=== PATIENT | male | born 1970 | race African-American/Black ===

== ENCOUNTER 2019-06-05 23:22 | Inpatient (IN) ==
[2019-06-05 23:50] LABS: Hematocrit 40.6 % (42.0-52.0); Hemoglobin 13.8 gm/dL (13.5-18.0); Mean Cell Volume 95.3 fl (78-100); Mean Corpuscular Hemoglobin 32.4 pg (27-31); Mean Platelet Volume 8.9 fl (8-11.3); Neutrophil # 6.9 K/mm3 (1.3-6.0); Neutrophil % 71.7 % (42-75.0); Platelet Count 252 K/mm3 (150-450); Red Blood Count 4.26 M/mm3 (4.7-6.0); Red Cell Distribution Width 15.1 % (11.5-14.0); White Blood Count 9.7 K/mm3 (4.0-10.5)
[2019-06-06] MEDS ORDERED: ASPIRIN 81 MG TAB.CHEW PO ONE (00:11)
[2019-06-06 00:16] LABS: Albumin * 2.6 gm/dl (3.4-5.0); Anion Gap 13.3 mmol/L (6.8-13.8); BUN/Creatinine Ratio 22.6 (9.0-21.6); Bilirubin, Total 1.8 mg/dL (0.0-1.1); Ca. Corrected For Albumin 8.7 mg/dL (8.4-10.2); Calcium * 7.9 mg/dL (7.9-10.9); Carbon Dioxide 23.6 mmol/L (24-32.6); Potassium 3.9 mmol/L (3.4-4.6); Total Protein 6.1 gm/dL (6.2-8.2)
[2019-06-06] MEDS ORDERED: FUROSEMIDE 10 MG/ML VIAL IV ONE (00:16)
[2019-06-06 00:18] LABS: Troponin I 0.07 ng/mL (0.00-0.10)
--- NOTE | 2019-06-06 00:19 | ERNOTE ---
Chest Pain/Cardiac HPI Date of Service: 06/05/19 Chief Complaint: Chest Pain Time Seen by Provider: 06/05/19 23:30 Source: patient Exam Limitations: no limitations Immunizations: IMMUNIZATION HX Immunizations Up to Date Yes History of Influenza Vaccine Yes Hx Pneumococcal Vaccination No Allergies/Adverse Reactions: Allergies shrimp Adverse Reaction (Intermediate, Verified 05/22/18 22:55) Swelling of Face Home Medications: HOME MEDICATIONS Aspirin [Aspir-Low] 81 mg PO DAILY 01/12/19 [Last Taken Unknown] Atorvastatin Calcium [Lipitor] 20 mg PO DAILY 01/12/19 [Last Taken Unknown] Enalapril Maleate [Vasotec] 10 mg PO BID 01/12/19 [Last Taken Unknown] Furosemide [Lasix] 80 mg PO BID 01/12/19 [Last Taken Unknown] Metoprolol Tartrate 50 mg PO DAILY 01/12/19 [Last Taken Unknown] Furosemide 20 mg PO BID #60 tab 06/06/19 [Last Taken Unknown] Metoprolol Succinate 50 mg PO DAILY 30 Days #30 tab.er.24h 06/06/19 [Last Taken Unknown] Narrative: Patient is a 48 years old male who presented complaining of exacerbation of his heart failure. Patient reports having a poor ejection fraction and being on Lasix 20 mg twice daily, but he ran out of his medication 2-1/2 weeks ago and did not get a renewal. He also reports to be out of his metoprolol 50 mg daily as well. Patient reports being hospitalized in 2018 at the [facility] and being diagnosed with heart failure, and started on metoprolol, furosemide, and a statin. Patient has not yet to establish care with anyone, and has not been compliant with his follow-up, denies use the ER as his primary care. On arrival he also reports of chest pain radiating to his left shoulder and left arm Timing: constant, getting worse Severity/Quality: moderate Chest Pain Radiation: jaw, arms Activities at Onset: none Modifying Factors - Worsens: Present: other - ambulation get short of breath Nitro Today/Relief: 0.4 mg x 1 Aspirin Treatment Today: 81 mg x 4 Prior Chest Pain/Cardiac Workup: Reports: prior chest pain Prior Treatment: Reports: recently seen Review of Systems - Review of Systems Constitutional: Absent: fever EYE: Absent: eye pain ENT: Absent: ear pain Respiratory: Present: shortness of breath, orthopnea, other - SOB on ambulation Cardiology: Present: chest pain Gastrointestinal/Abdominal: Absent: nausea, vomiting, abdominal pain Genitourinary: Absent: pain Musculoskeletal: Absent: back pain Skin: Absent: rash Neurological: Absent: anxiety All Other Systems: All systems neg except as marked Medical History (Last Reviewed 06/05/19 @ 23:34 by Savanah Kennedy) CHF (congestive heart failure) Cardiomegaly Hyperlipemia Hypertension Surgical History: Surgical History (Last Reviewed 06/05/19 @ 23:34 by Savanah Kennedy) History of cholecystectomy Family History: Family History (Last Reviewed 06/05/19 @ 23:34 by Savanah Kennedy) Father CHF (congestive heart failure) Mother Medical history unknown Sister Hypertension Social History: (Last Updated 06/05/19 @ 23:35 by Savanah Kennedy) Tobacco: Smoking Status: Former smoker Alcohol: alcohol intake: former Substance Use: substance use type: does not use, marijuana Physical Exam - Physical Exam General Appearance: Present: wd/wn, mild distress Head Exam: Present: normal inspection Eye Exam: Normal inspection: bilateral, PERRL: bilateral Ears, Nose, Throat: Present: normal ENT inspection Neck: Present: normal inspection Respiratory: Present: no respiratory distress, normal breath sounds Cardiovascular/Chest: Present: regular rate, rhythm, tachycardia Gastrointestinal/Abdominal: Present: normal bowel sounds Back Exam: Present: normal inspection Extremity Exam: Present: normal inspection Neurological Exam: Present: alert, oriented Skin Exam: Present: normal color Lymphatic Exam: Present: no adenopathy Progress - Vital Signs Vital Signs: Vital Signs 06/05/19 23:30 Temperature 36.9 C Pulse Rate 104 H Respiratory Rate 20 Blood Pressure 116/88 O2 Sat by Pulse Oximetry 98 - EKG EKG #1 EKG Comments: HR 102, sinus tachycardia with occasional PVC, inverted T-wave in V4, V5, V6. EKG #2 EKG read: Interp. by ca - HR 74, non specific T wave abnormality, T wave inversion in V4, V5 on previous EKG now resolved - X-Ray X-Ray #1 X-Ray: chest Interpretation: Interp. by me - cardiomegaly - CT/Ultrasound CT/Ultrasound Narrative: CTA chest: Impression 1. No evidence for clinically significant pulmonary emboli. 2. Nonobstructing renal pelvic nephrolithiasis as described. 3. Nonspecific intra-pulmonary airspace disease as described, likely pleural pneumonia versus edema. 4. Alveolitis versus subsegmental atelectasis as described. 5. She will clinical concern for thoracic aortic abnormality exists, recommend CT angiogram of the aorta. CTA abdomen; impression 1. No abdominal aortic dissection, aneurysm, or proximal branch vessel abnormality. 2. Findings suggestive of gastritis and proximal enteritis with small undue luminal hemorrhages versus ingestion of radiodense substances. There are not as well seen on postcontrast images, however. 3. Nonobstructive renal pelvic nephrolithiasis as described. 4. Mesenteric fat stranding that likely reflect an inflammatory process that may manifest as pain. - Progress/Reassessment Chief Complaint: Chest Pain Progress Note-Subjective: 06/06/19 02:00 -patient was ambulated with pulse ox to check is saturation and he desaturated 91% on room air. 02:30 -patient second troponin is 0.062 which is less than the first troponin, patient reports still having some chest pain. I discussed with him the recommendation to keep him in the hospital overnight for diuresis and to reinitiate his medication. Patient asked to think about it for little while. 03:00 -patient refused to be admitted and asked to be discharged home with his furosemide and metoprolol for 30 days and to follow-up post ER visit with Dr. Fang at the beginning of the week. I gave him his daily dose of metoprolol 50 mg, and discussed the need to establish care with a primary care gil. 03:20 -patient was discharged, but he did not have a ride to pick him up so he waited in the ED. 04:20 - Patient started to complain of chest burning, being diaphoretic, I ordered a new EKG, troponin, GI cokctail and restarted an IV 04:30 - contacted Dr Fang who accepted admission with exacerbation of HF 04:46 - patient had an emesis and complains now of pulsation in his epigastric area, he is still diaphoretic. I ordered a CTA aorta. 07:00 -CTA aorta ordered and up being a CTA chest and his CTA abdomen due to problems with sequencing of the contrast through the vessel due to patient being a heart and heart failure. Consequently it took 2 hours for this CTA result to be received, luckily the patient did not have acute finding that needed emergent treatment. 07:05 -patient was finally able to have admission order put in. 06/06/19 05:58 06/06/19 07:13 Plan - Plan Plan: Patient is a 48 years old male with heart failure, and cardiomegaly who is not compliant with his care. He was diagnosed with heart failure in 2018 in [place], and has not found a primary care since. Consequently, he gets his prescription from visit to the ED. He usually run out of medication and waits weeks until he feels not well and then goes to the ED for more evaluation and prescription. Today he presented with chest pain, and shortness of breath on exertion that has been worsening over the last 2 weeks. He stopped taking metoprolol and Lasix 2-1/2 weeks ago. Patient reports to be on metoprolol 50 mg daily and on furosemide 20 mg twice daily. In the ED, on arrival he had an EKG, 4 tablets of 80 mg aspirin, and 0.4 mg of nitroglycerin sublingual which improved his pain (from a 7 to a 1 out of 10), and 60 mg of furosemide IV. His initial troponin was 0.07, his repeat troponin was 0.062, and his BNP was 3374. On ambulation patient desaturated to 91% on room air, I recommended inpatient observation with diuresis and monitoring considering his heart failure and noncompliance. However initially patient refused admission and discharge was prepared, and prescription was given for metoprolol and furosemide for 30 days. Since patient has not taken is metoprolol for 2 weeks and a half, he was also given his daily dose of metoprolol 50 mg. After discharge patient was not able to leave immediately due to lack of transport, also is stated in the ED. Within 1-1/2-hour he started to have diaphoresis and increase in chest pain. A GI cocktail was given which he vomited shortly after. Patient also became hypotensive while standing, which resolved with sitting in the bed. However he continues to complain of severe chest and epigastric pain, due to his diaphoresis and CTA of the aorta was ordered, which was done rapidly. However the report took about 2 hours to be received. Fortunately the patient vitals stabilized and he received a gram of acetaminophen IV which help with the pain. I discussed the case with Dr. Fang, who accepted admission for exacerbation of CHF. Departure Clinical Impression: CHF, acute on chronic - Departure Disposition: Still a patient Condition: Fair
[2019-06-06] MEDS: NITROGLYCERIN 0.4 MG/TAB BTL SL PRN ×3 (00:24→00:37)
[2019-06-06 00:27] LABS: Urine Bilirubin 1 mg/dl (NEGATIVE); Urine Ketone Negative (NEGATIVE); Urine Nitrite Negative (NEGATIVE); Urine Protein 100 mg/dL (NEGATIVE); Urine Specific Gravity 1.025 SP.GR. (1.005-1.030); Urine Urobilinogen Normal (NORMAL)
[2019-06-06] MEDS ORDERED: ACETAMINOPHEN 500 MG TABLET PO ONE (00:42)
[2019-06-06 00:44] LABS: Urine Appearance Slightly Cloudy (CLEAR); Urine Bacteria 2+; Urine Blood 10 /ul (NEGATIVE); Urine Color Dark Yellow; Urine RBC 0-5 /hpf (0-5); Urine WBC TRACE /hpf (0-5)
[2019-06-06 01:11] LABS: Cocaine Ur Negative (NEGATIVE); Urine Barbiturate Negative (NEGATIVE); Urine Benzodiazepines Negative (NEGATIVE); Urine Opiates Negative (NEGATIVE); Urine PCP Negative (NEGATIVE); Urine THC Positive (NEGATIVE)
[2019-06-06] MEDS ORDERED: METOPROLOL TARTRATE 25 MG TABLET PO ONE (03:07)
[2019-06-06] MEDS ORDERED: LIDOCAINE HCL 20 ML UDC PO ONE (04:19)
[2019-06-06] MEDS ORDERED: MAG HYDROX/ALUMINUM HYD/SIMETH 30 ML UDC PO ONE (04:19)
[2019-06-06] MEDS ORDERED: SUCRALFATE 1 G/10 ML UDC PO ONE (04:21)
[2019-06-06] MEDS ORDERED: ONDANSETRON HCL/PF 2 MG/ML VIAL IV ONE (04:33)
[2019-06-06] MEDS ORDERED: ACETAMINOPHEN 1,000 MG/100 ML BTL IV ONE (05:44)
[2019-06-06] MEDS ORDERED: ACETAMINOPHEN 325 MG TABLET PO PRN (12:50)
--- NOTE | 2019-06-06 13:33 | HP ---
Chief Complaint - Chief Complaint Date of Service: 06/06/19 Time of Service: 13:18 Chief Complaint: I have shortness of breath at rest and on exertion for several days History of Present Illness: 48-year-old male with past medical history of congestive heart failure, hypertension, cardiomegaly was evaluated ER due to worsening dyspnea at rest and on exertion and epigastric pain over the past several days. He also complained of chest pain that he radiated to his left upper extremity and jaw, and became diaphoretic while in the ER. CTA of his chest and abdomen were ordered and were negative for any acute findings however the imaging of the abdomen demonstrated possible gastritis and proximal enteritis. Patient was treated with an acids and reported relief of his epigastric discomfort. Possible pneumonia was also mention on imaging of his chest, however labs was negative for leukocytosis and patient denies any recent fever or chills. Pneumonia is unlikely. Patient reports that he was diagnosed with CHF over a year ago and was prescribed diuretics and beta-blockers as well as other medications but stopped taking them over 2 weeks ago. He does this quite often and is very inconsistent with his medications because he is unable to get prescription refills in a timely fashion. When asked why he has been noncompliant with his treatment he reports he does not have a PCP he did not have any plans to establish with 1. Patient has been coming to the ER for management of his chronic conditions and each time he has discharge with a prescription for medications for 30 days. During bedside evaluation patient was counseled on the importance of compliance with his medication to keep him out of the hospital and to avoid complications to his chronic conditions. He expressed that he understood and agreed to make an appointment with myself to establish care in the internal medicine clinic in the next few days. Medical History (Last Reviewed 06/06/19 @ 07:09 by Rubina Bui RN) CHF (congestive heart failure) Cardiomegaly Hyperlipemia Hypertension Surgical History: Surgical History (Last Reviewed 06/06/19 @ 07:09 by Rubina Bui RN) History of cholecystectomy Family History: Family History (Last Reviewed 06/06/19 @ 07:09 by Rubina Bui RN) Father CHF (congestive heart failure) Mother Medical history unknown Sister Hypertension Social History: (Last Reviewed 06/06/19 @ 07:09 by Rubina Bui RN) Tobacco: Smoking Status: Former smoker Alcohol: alcohol intake: former Substance Use: substance use type: does not use, marijuana Peds Patient Hx - Developmental: No Pertinent Hx Peds Patient Hx - Medical: No Pertinent Hx Peds Patient Hx - Cardiac/Respiratory: No Pertinent Hx Peds Patient Hx - Surgical: No Surgical History Patient History - Cancer: No Hx of Cancer Review Of Systems (GEN) - Review of Systems Generalized/Overall Review: Present: No Symptoms Reported EENTM: Present: No Symptoms Reported Respiratory: Present: Shortness of Breath Cardiac: Present: Chest Pain, Other - Dyspnea on exertion and at rest Abdominal: Present: Abdominal Pain - Epigastric pain Genitourinary: Present: No Symptoms Reported Musculoskeletal: Present: No Symptoms Reported Neurological: Present: No Symptoms Reported Skin: Present: No Symptoms Reported Endocrine: Present: No Symptoms Reported Immunizations: IMMUNIZATION HX Immunizations Up to Date Yes History of Influenza Vaccine Yes Hx Pneumococcal Vaccination No Allergies/Adverse Reactions: Allergies Allergy/AdvReac Type Severity Reaction Status Date / Time shrimp AdvReac Intermediate Swelling Verified 06/06/19 07:09 of Face Home Medications: HOME MEDICATIONS Aspirin [Aspir-Low] 81 mg PO DAILY 01/12/19 [Last Taken Unknown] Atorvastatin Calcium [Lipitor] 20 mg PO DAILY 01/12/19 [Last Taken Unknown] Enalapril Maleate [Vasotec] 10 mg PO BID 01/12/19 [Last Taken Unknown] Furosemide [Lasix] 80 mg PO BID 01/12/19 [Last Taken Unknown] Metoprolol Tartrate 50 mg PO DAILY 01/12/19 [Last Taken Unknown] Furosemide 20 mg PO BID #60 tab 06/06/19 [Last Taken Unknown] Metoprolol Succinate 50 mg PO DAILY 30 Days #30 tab.er.24h 06/06/19 [Last Taken Unknown] Exam - Exam Vital Signs: Vital Signs - Last Taken Temp 35.0 C L 06/06/19 06:16 Pulse 53 L 06/06/19 08:56 Resp 16 06/06/19 07:16 BP 99/43 06/06/19 08:56 Pulse Ox 94 06/06/19 07:16 Constitutional: Present: Alert, Oriented x3, Well developed, Well nourished, No distress, Other - Patient was sleeping soundly and comfortably and had to be woken up, he appeared annoyed because we woke him up., Middle aged, Overweight ENT Exam: Present: normal ENT inspection, hearing grossly normal, pharynx normal, TMs normal Eye Exam: bilateral eye: normal inspection, PERRL, EOMI Neck: Present: non-tender, full range of motion, supple, normal inspection, trachea midline Back Exam: Present: normal inspection, no CVA tenderness, no vertebral tenderness Breasts: Present: Exam deferred Respiratory: Present: chest non-tender, lungs clear, normal breath sounds, no respiratory distress, no accessory muscle use Cardiovascular/Chest: Present: normal peripheral pulses, regular rate, rhythm, no chest tenderness, no edema, no gallop, no JVD, no murmur, no rub Peripheral Pulses: carotid (R): 3+, carotid (L): 3+, femoral (R): 3+, femoral (L): 3+, dorsalis-pedis (R): 3+, dorsalis-pedis (L): 3+ Abdomen: Present: Normal bowel sounds, soft, nontender, nondistended, no rebound tenderness, no hepatospenomegaly, no masses /Rectal: Present: Exam deferred Extremity: Present: normal range of motion, non-tender, normal inspection, no pedal edema, no calf tenderness, normal capillary refill, pelvis stable Skin Exam: Present: normal color, warm/dry, no cyanosis Lymphatic: Present: no adenopathy Neurologic: Present: 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, normal cerebellar test, no motor/sensory deficits, alert, normal mood/affect, oriented x 3 Appearance: Present: appropriate appearance, appropriate insight, neat, no memory impairment Eye contact: Present: cooperative, good eye contact, normal speech, avoids eye contact Thoughts: Present: normal thought pattern, no apparent hallucination Diagnostic Studies: Abnormal Lab Results 06/05/19 06/05/19 06/06/19 Range/Units 23:45 23:45 00:11 RBC 4.26 L (4.7-6.0) M/mm3 Hct 40.6 L (42.0-52.0) % MCH 32.4 H (27-31) pg RDW 15.1 H (11.5-14.0) % Immature Gran # (Auto) 0.04 H (0.000-0.0310) K/mm3 Lymphocytes % 18.8 L (20-51) % Neutrophils # 6.9 H (1.3-6.0) K/mm3 Carbon Dioxide 23.6 L (24-32.6) mmol/L BUN 24 H (6-23) mg/dL BUN/Creatinine Ratio 22.6 H (9.0-21.6) Random Glucose 143 H (70-110) mg/dL Total Bilirubin 1.8 H (0.0-1.1) mg/dL AST 57 H (0-48) U/L ALT 115 H (19-67) U/L B-Natriuretic Peptide 3733 H (5-140) pg/mL Total Protein 6.1 L (6.2-8.2) gm/dL Albumin 2.6 L (3.4-5.0) gm/dl Urine Protein (NEGATIVE) mg/dL Urine Blood (NEGATIVE) /ul Urine Bilirubin (NEGATIVE) mg/dl Prot Sulfosalicylic Acd (0) mg/dL Urine Bacteria (NONE) Urine Marijuana (THC) (NEGATIVE) 06/06/19 06/06/19 Range/Units 00:20 00:55 RBC (4.7-6.0) M/mm3 Hct (42.0-52.0) % MCH (27-31) pg RDW (11.5-14.0) % Immature Gran # (Auto) (0.000-0.0310) K/mm3 Lymphocytes % (20-51) % Neutrophils # (1.3-6.0) K/mm3 Carbon Dioxide (24-32.6) mmol/L BUN (6-23) mg/dL BUN/Creatinine Ratio (9.0-21.6) Random Glucose (70-110) mg/dL Total Bilirubin (0.0-1.1) mg/dL AST (0-48) U/L ALT (19-67) U/L B-Natriuretic Peptide (5-140) pg/mL Total Protein (6.2-8.2) gm/dL Albumin (3.4-5.0) gm/dl Urine Protein 100 H (NEGATIVE) mg/dL Urine Blood 10 H (NEGATIVE) /ul Urine Bilirubin 1 H (NEGATIVE) mg/dl Prot Sulfosalicylic Acd 2+ H (0) mg/dL Urine Bacteria 2+ H (NONE) Urine Marijuana (THC) Positive H (NEGATIVE) Laboratory Results WBC 9.7 K/mm3 (4.0-10.5) 06/05/19 23:45 RBC 4.26 M/mm3 (4.7-6.0) L 06/05/19 23:45 Hgb 13.8 gm/dL (13.5-18.0) 06/05/19 23:45 Hct 40.6 % (42.0-52.0) L 06/05/19 23:45 MCV 95.3 fl (78-100) 06/05/19 23:45 MCH 32.4 pg (27-31) H 06/05/19 23:45 MCHC 34.0 g/dl (32-36) 06/05/19 23:45 RDW 15.1 % (11.5-14.0) H 06/05/19 23:45 Plt Count 252 K/mm3 (150-450) 06/05/19 23:45 MPV 8.9 fl (8-11.3) 06/05/19 23:45 Immature Gran % (Auto) 0.40 % (0.001-0.429) 06/05/19 23:45 Immature Gran # (Auto) 0.04 K/mm3 (0.000-0.0310) H 06/05/19 23:45 Neutrophils % 71.7 % (42-75.0) 06/05/19 23:45 Lymphocytes % 18.8 % (20-51) L 06/05/19 23:45 Monocytes % 7.1 % (0.0-9) 06/05/19 23:45 Eosinophils % 1.6 % (0.0-3.0) 06/05/19 23:45 Basophils % 0.4 % (0.0-1.0) 06/05/19 23:45 Nucleated RBC % 0.0 k/mm3 (0-1) 06/05/19 23:45 Neutrophils # 6.9 K/mm3 (1.3-6.0) H 06/05/19 23:45 Lymphocytes # 1.82 k/mm3 (1.5-3.5) 06/05/19 23:45 Monocytes # 0.7 k/mm3 (0.0-1.0) 06/05/19 23:45 Eosinophils # 0.2 k/mm3 (0.0-0.7) 06/05/19 23:45 Absolute Basophils 0.0 k/mm3 (0.0-0.1) 06/05/19 23:45 Sodium 134 mmol/L (132-142) 06/05/19 23:45 Plasma Sodium 135 mmol/L (130-142) 06/05/19 23:45 Potassium 3.9 mmol/L (3.4-4.6) 06/05/19 23:45 Chloride 101 mmol/L (97-106) 06/05/19 23:45 Carbon Dioxide 23.6 mmol/L (24-32.6) L 06/05/19 23:45 Anion Gap 13.3 mmol/L (6.8-13.8) 06/05/19 23:45 BUN 24 mg/dL (6-23) H 06/05/19 23:45 Creatinine 1.06 mg/dL (0.4-1.4) 06/05/19 23:45 Est GFR (Non-Af Amer) 96 mL/min (60-130) 06/05/19 23:45 BUN/Creatinine Ratio 22.6 (9.0-21.6) H 06/05/19 23:45 Random Glucose 143 mg/dL (70-110) H 06/05/19 23:45 Calcium 7.9 mg/dL (7.9-10.9) 06/05/19 23:45 Calcium Adj for Albumin 8.7 mg/dL (8.4-10.2) 06/05/19 23:45 Total Bilirubin 1.8 mg/dL (0.0-1.1) H 06/05/19 23:45 AST 57 U/L (0-48) H 06/05/19 23:45 ALT 115 U/L (19-67) H 06/05/19 23:45 Alkaline Phosphatase 105 U/L (50-170) 06/05/19 23:45 Troponin I 0.050 ng/mL (0.00-0.10) 06/06/19 04:24 B-Natriuretic Peptide 3733 pg/mL (5-140) H 06/06/19 00:11 Total Protein 6.1 gm/dL (6.2-8.2) L 06/05/19 23:45 Albumin 2.6 gm/dl (3.4-5.0) L 06/05/19 23:45 Urine Color Dark yellow 06/06/19 00:20 Urine Appearance Slightly cloudy (CLEAR) 06/06/19 00:20 Urine pH 6.0 pH (5.0-7.0) 06/06/19 00:20 Ur Specific [place] 1.025 SP.GR. (1.005-1.030) 06/06/19 00:20 Urine Protein 100 mg/dL (NEGATIVE) H 06/06/19 00:20 Urine Glucose (UA) Negative mg/dL (NEGATIVE) 06/06/19 00:20 Urine Ketones Negative mg/dL (NEGATIVE) 06/06/19 00:20 Urine Blood 10 /ul (NEGATIVE) H 06/06/19 00:20 Urine Nitrate Negative (NEGATIVE) 06/06/19 00:20 Urine Bilirubin 1 mg/dl (NEGATIVE) H 06/06/19 00:20 Urine Ictotest Negative (NEGATIVE) 06/06/19 00:20 Prot Sulfosalicylic Acd 2+ mg/dL (0) H 06/06/19 00:20 Urine Urobilinogen Normal EU/dl (NORMAL) 06/06/19 00:20 Ur Leukocyte Esterase Negative /ul (NEGATIVE) 06/06/19 00:20 Urine RBC 0-5 /hpf (0-5) 06/06/19 00:20 Urine WBC Trace /hpf (0-5) 06/06/19 00:20 Ur Epithelial Cells 0-5 /hpf (0-5) 06/06/19 00:20 Urine Bacteria 2+ (NONE) H 06/06/19 00:20 Urine Culture Comments Culture to follow 06/06/19 00:20 Urine Opiates Screen Negative (NEGATIVE) 06/06/19 00:55 Barbiturate Screen Negative (NEGATIVE) 06/06/19 00:55 Ur Phencyclidine Scrn Negative (NEGATIVE) 06/06/19 00:55 Urine Amphetamine Negative (NEGATIVE) 06/06/19 00:55 U Benzodiazepines Scrn Negative (NEGATIVE) 06/06/19 00:55 Urine Cocaine Screen Negative (NEGATIVE) 06/06/19 00:55 Urine Marijuana (THC) Positive (NEGATIVE) H 06/06/19 00:55 Assessment/Plan - Narrative Narrative: Patient was evaluated medical chart was reviewed and decision to admit to inpatient MedSurg unit was made to manage a diagnosis of decompensated CHF due to noncompliance with routine treatment. Patient was appeared annoyed during rounds this morning due to the fact that he was sleeping comfortably and had to be waking up but it was explained to him that he needs to take his health seriously and be compliant with his medications to avoid further hospitalizations and complications of his chronic conditions. At the moment his vitals are stable but he is hypotensive, will monitor his vitals closely. Multiple doses of IV diuretics to be given every 12 hours x 3 doses were ordered, this is to be followed by maintenance dose of furosemide to avoid further fluid overload. He reports improvement of his epigastric discomfort after being treated with antacids, and acids were ordered to be given on an ongoing basis due to confirmed gastritis on CTA of his abdomen. Routine meds were reconciled to be given during the hospitalization. - Assessment/Plan (1) Heart failure, systolic, with acute decompensation Problem: Acute (2) Non-compliant patient Problem: Acute (3) Acute gastritis Problem: Acute (4) Transaminitis Problem: Acute
[2019-06-06] MEDS: FUROSEMIDE 10 MG/ML VIAL IV SCH ×2 (13:54→22:07)
[2019-06-06] MEDS: METOPROLOL TARTRATE 50 MG TABLET PO SCH (13:57)
[2019-06-06] MEDS: FAMOTIDINE 20 MG TABLET PO SCH ×4 (13:57→22:34)
[2019-06-06] MEDS: SUCRALFATE 1 G/10 ML UDC PO SCH ×4 (17:20→22:34)
[2019-06-07 06:28] LABS: Hematocrit 52.4 % (42.0-52.0); Mean Corpuscular Hemoglobin 32.8 pg (27-31); Mean Corpuscular Hgb Conc 32.4 g/dl (32-36); Mean Platelet Volume 9.8 fl (8-11.3); Platelet Count 209 K/mm3 (150-450); Red Blood Count 5.19 M/mm3 (4.7-6.0); Red Cell Distribution Width 15.3 % (11.5-14.0); White Blood Count 16.2 K/mm3 (4.0-10.5)
[2019-06-07 06:31] LABS: Total Cells Counted 100
[2019-06-07 06:48] LABS: Lymphocyte 19 % (20-51); Monocyte 2 % (0-9); Neutrophil 79 % (42-75); Neutrophil # 12.8 K/mm3 (1.3-6.0); Platelet Estimate Normal (NORMAL); RBC Morphology Normal (NORMAL)
[2019-06-07] MEDS: SUCRALFATE 1 G/10 ML UDC PO SCH ×2 (07:03→11:38)
[2019-06-07 07:53] LABS: Albumin * 3.1 gm/dl (3.4-5.0); Anion Gap 13.8 mmol/L (6.8-13.8); BUN/Creatinine Ratio 23.2 (9.0-21.6); Bilirubin, Total 4.2 mg/dL (0.0-1.1); Calcium * 8.6 mg/dL (7.9-10.9); Potassium 5.8 mmol/L (3.4-4.6); Total Protein 7.4 gm/dL (6.2-8.2)
[2019-06-07] MEDS ORDERED: POTASSIUM CHLORIDE 20 MEQ TABLET.SA PO SCH (09:00)
[2019-06-07] MEDS: FUROSEMIDE 10 MG/ML VIAL IV SCH ×2 (09:32→20:20)
[2019-06-07] MEDS: ROSUVASTATIN CALCIUM 10 MG TABLET PO SCH (09:35)
[2019-06-07] MEDS: ASPIRIN 81 MG TABLET.DR PO SCH (09:35)
[2019-06-07] MEDS: FAMOTIDINE 20 MG TABLET PO SCH (09:35)
--- NOTE | 2019-06-07 12:05 | PN ---
Subjective - Date and Time Seen Date: 06/07/19 Time: 11:43 Subjective Narrative: I have nausea when I take Carafate. Objective Objective Narrative: 48-year-old male admitted for decompensated CHF, fluid overload, and acute jneny ritis was evaluated at bedside was found to be afebrile and in no acute distress. Patient reports improvement in shortness of breath but still has occasional dyspnea on exertion while going to the bathroom or ambulating elsewhere. However auscultation of his lungs demonstrate complete resolution of crackles and he does not have any pedal edema. Patient was reported as being noncompliant with his treatment and refused his Lasix yesterday evening. He has also been noncooperative during blood draws which makes adequate dry of enough blood difficult. I am not sure if this is a contributing factor to very irregular lab results this morning, according to these labs the patient's liver enzymes have significantly increased and his GFR is decreased. I will repeat these to ensure for accuracy and treat the patient as needed. In the meantime he was counseled on the importance of being compliant with his in hospital treatments and outpatient treatments in order to avoid complications. He r eports that he turned down the Lasix yesterday evening because he is been going to the bathroom a lot and I explained to him that this was expected in a desired effect in order to diurese him to treat the CHF. He also refused his Carafate which was to treat his confirmed gastritis but he says that it makes him sick to stomach so he does not wish to continue taking it. Patient was switched to just IV Protonix for his gastritis. We will reevaluate repeat lab work to ensure reliability and to direct further treatment. Furosemide dose has been decreased but will continue to be administered every 12 hours to unload some of the fluid. - Review of Systems Generalized/Overall Review: Reports: No Symptoms Reported EENTM: Reports: No Symptoms Reported Respiratory: Reports: Shortness of Breath Cardiac: Reports: No Symptoms Reported Abdominal: Reports: No Symptoms Reported Genitourinary Symptoms: Reports: No Symptoms Reported Musculoskeletal Complaints: Reports: No Symptoms Reported Neurological: Reports: No Symptoms Reported Skin: Reports: No Symptoms Reported Endocrine: Reports: No Symptoms Reported - Vitals Vitals: Last Vital Signs Temp 36.0 C 06/07/19 10:00 Pulse 91 06/07/19 10:00 Resp 20 06/07/19 10:00 BP 133/97 H 06/07/19 10:00 Pulse Ox 98 06/07/19 10:00 - Abnormal Lab Findings Abnormal Lab Findings: Abnormal Lab Results 06/07/19 06/07/19 Range/Units 06:17 06:17 WBC 16.2 H D (4.0-10.5) K/mm3 Hct 52.4 H (42.0-52.0) % MCV 101.0 H (78-100) fl MCH 32.8 H (27-31) pg RDW 15.3 H (11.5-14.0) % Neutrophils % (Manual) 79 H (42-75) % Lymphocytes % (Manual) 19 L (20-51) % Neutrophils # (Manual) 12.8 H (1.3-6.0) K/mm3 Sodium 130 L (132-142) mmol/L Potassium 5.8 H D (3.4-4.6) mmol/L BUN 38 H D (6-23) mg/dL Creatinine 1.64 H D (0.4-1.4) mg/dL Est GFR (Non-Af Amer) 58 L D (60-130) mL/min BUN/Creatinine Ratio 23.2 H (9.0-21.6) Total Bilirubin 4.2 H (0.0-1.1) mg/dL AST 2919 H (0-48) U/L ALT 1745 H (19-67) U/L Albumin 3.1 L (3.4-5.0) gm/dl - Exam Constitutional: Present: Alert, Oriented x3, Cooperative, Well developed, Well nourished, No distress ENT Exam: Present: normal ENT inspection, hearing grossly normal, pharynx normal, TMs normal Neck: Present: non-tender, full range of motion, supple, normal inspection, trachea midline Cardiovascular/Chest: Present: normal peripheral pulses, regular rate, rhythm, no chest tenderness, no edema, no gallop, no JVD, no murmur, no rub Abdomen: Present: Normal bowel sounds, soft, nontender, nondistended, no rebound tenderness, no hepatospenomegaly, no masses /Rectal: Present: Exam deferred Extremity: Present: normal range of motion, non-tender, normal inspection, no pedal edema, no calf tenderness, normal capillary refill Skin Exam: Present: normal color, warm/dry, no cyanosis Lymphatic: Present: no adenopathy Neurologic: Present: 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 Patient explained to the case liner that his living situation at the time is very complicated and in a poor state. He is currently living with friends and will most likely return to the home after being discharged. He lives in [place] and supposedly was banned from their ER and is only able to get medications by coming to our ER or some other ER outside of [place]. Once those medications run out he is without treatment for his chronic conditions. Patient was counseled on the importance of establishing with his PCP to manage his chronic conditions however reports that that is difficult for him due to lack of transportation, he currently does not have a car. We will attempt to make arrangements for him to establish with a provider at the [facility] on the [place] in order to keep him out of the hospital. He also admitted to occasional methamphetamine use, he says the last time he used was about 2 to 3 weeks ago but recently he is only been smoking marijuana. He says he only occasionally drink 1 beer maybe once a month but I am not sure how accurate that is. When asked if he has a history of liver disease he said he is not aware and was never told that there was something wrong with his liver. However given the acute rise in his transaminases, liver disease is very likely. We will confirm this on the repeat lab results. - Problems/Diagnosis (1) Heart failure, systolic, with acute decompensation Problem: Acute (2) Non-compliant patient Problem: Acute (3) Acute gastritis Problem: Acute (4) Transaminitis Problem: Acute (5) Non-compliant patient Problem: Acute (6) Poor social situation Problem: Acute
[2019-06-07] MEDS: ENALAPRIL MALEATE 5 MG TABLET PO SCH (20:21)
[2019-06-07] MEDS: PANTOPRAZOLE SODIUM 40 MG TABLET.EC PO SCH (20:21)
[2019-06-08 04:09] LABS: Hematocrit 42.4 % (42.0-52.0); Hemoglobin 14.4 gm/dL (13.5-18.0); Mean Cell Volume 95.7 fl (78-100); Mean Corpuscular Hemoglobin 32.5 pg (27-31); Mean Platelet Volume 9.4 fl (8-11.3); Neutrophil # 8.5 K/mm3 (1.3-6.0); Neutrophil % 75.8 % (42-75.0); Platelet Count 244 K/mm3 (150-450); Red Blood Count 4.43 M/mm3 (4.7-6.0); Red Cell Distribution Width 15.1 % (11.5-14.0); White Blood Count 11.2 K/mm3 (4.0-10.5)
[2019-06-08 04:12] LABS: Albumin * 2.8 gm/dl (3.4-5.0); Anion Gap 11.6 mmol/L (6.8-13.8); BUN/Creatinine Ratio 26.5 (9.0-21.6); Bilirubin, Total 2.6 mg/dL (0.0-1.1); CRP 7.4 mg/dL (0.0-0.9); Ca. Corrected For Albumin 8.8 mg/dL (8.4-10.2); Calcium * 8.2 mg/dL (7.9-10.9); Carbon Dioxide 27.7 mmol/L (24-32.6); Potassium 4.3 mmol/L (3.4-4.6); Total Protein 6.5 gm/dL (6.2-8.2)
[2019-06-08 06:40] LABS: Hematocrit 44.5 % (42.0-52.0); Mean Cell Volume 96.1 fl (78-100); Mean Corpuscular Hemoglobin 32.4 pg (27-31); Mean Corpuscular Hgb Conc 33.7 g/dl (32-36); Mean Platelet Volume 9.6 fl (8-11.3); Neutrophil # 7.8 K/mm3 (1.3-6.0); Neutrophil % 71.2 % (42-75.0); Platelet Count 228 K/mm3 (150-450); Red Blood Count 4.63 M/mm3 (4.7-6.0); Red Cell Distribution Width 14.7 % (11.5-14.0); White Blood Count 10.9 K/mm3 (4.0-10.5)
[2019-06-08 06:54] LABS: Albumin * 2.8 gm/dl (3.4-5.0); BUN/Creatinine Ratio 29.5 (9.0-21.6); Bilirubin, Total 2.6 mg/dL (0.0-1.1); Ca. Corrected For Albumin 8.9 mg/dL (8.4-10.2); Calcium * 8.3 mg/dL (7.9-10.9); Carbon Dioxide 28.1 mmol/L (24-32.6); Potassium 4.1 mmol/L (3.4-4.6); Total Protein 6.7 gm/dL (6.2-8.2)
[2019-06-08] MEDS: PANTOPRAZOLE SODIUM 40 MG TABLET.EC PO SCH ×2 (07:05→21:00)
[2019-06-08] MEDS: ASPIRIN 81 MG TABLET.DR PO SCH (09:03)
[2019-06-08] MEDS: ROSUVASTATIN CALCIUM 10 MG TABLET PO SCH (09:03)
[2019-06-08] MEDS: ENALAPRIL MALEATE 5 MG TABLET PO SCH ×2 (09:04→21:00)
[2019-06-08] MEDS: FUROSEMIDE 10 MG/ML VIAL IV SCH ×2 (09:19→20:58)
--- NOTE | 2019-06-08 11:40 | PN ---
Subjective - Date and Time Seen Date: 06/08/19 Time: 11:31 Subjective Narrative: I feel better, no SOB. Objective Objective Narrative: 48-year-old male admitted for decompensated CHF, fluid overload, and acute gastritis was evaluated at bedside was found to be afebrile and in no acute distress. Patient reports complete resolution of his shortness of breath and he has no pedal edema. His only complaint is multiple trips to the bathroom but it was explained to him that this is a good thing and we expected in response to the diuretics that we are treating him with. He is tolerating the new dose of furosemide without any issues. His blood pressure has stabilized therefore his antihypertensives were resumed. Labs this morning demonstrate improvement of his liver enzymes and renal function. It is likely that the elevated enzymes was an inflammatory response due to his acute illness, however I am not sure. Hepatitis panel was ordered given the patient's past medical history of methamphetamine use and other drugs, however this is a send out lab and will be back until couple of days. In the meantime we will continue to treat the patient with diuretics and monitor blood pressure and other clinical parameters to treat his CHF. - Review of Systems Generalized/Overall Review: Reports: No Symptoms Reported EENTM: Reports: No Symptoms Reported Respiratory: Reports: No Symptoms Reported Cardiac: Reports: No Symptoms Reported Abdominal: Reports: No Symptoms Reported Genitourinary Symptoms: Reports: Frequency Musculoskeletal Complaints: Reports: No Symptoms Reported Neurological: Reports: No Symptoms Reported Skin: Reports: No Symptoms Reported Endocrine: Reports: No Symptoms Reported - Vitals Vitals: Last Vital Signs Temp 36.8 C 06/08/19 10:15 Pulse 87 06/08/19 10:15 Resp 17 06/08/19 10:15 BP 126/87 06/08/19 10:15 Pulse Ox 92 L 06/08/19 04:44 - Abnormal Lab Findings Abnormal Lab Findings: Abnormal Lab Results 06/07/19 06/07/19 06/08/19 Range/Units 06:17 06:17 00:20 WBC 16.2 H D (4.0-10.5) K/mm3 RBC (4.7-6.0) M/mm3 MCH (27-31) pg RDW (11.5-14.0) % Immature Gran # (Auto) (0.000-0.0310) K/mm3 Neutrophils % (42-75.0) % Lymphocytes % (20-51) % Monocytes % (0.0-9) % Neutrophils # (1.3-6.0) K/mm3 Lymphocytes # (1.5-3.5) k/mm3 Monocytes # (0.0-1.0) k/mm3 ESR 15 H (0-10) mm/hr Sodium (132-142) mmol/L Potassium 5.8 H D (3.4-4.6) mmol/L Chloride (97-106) mmol/L BUN 38 H D (6-23) mg/dL Creatinine 1.64 H D (0.4-1.4) mg/dL Est GFR (Non-Af Amer) 58 L D (60-130) mL/min BUN/Creatinine Ratio (9.0-21.6) Random Glucose (70-110) mg/dL Total Bilirubin (0.0-1.1) mg/dL AST (0-48) U/L ALT (19-67) U/L C-Reactive Prot, Quant (0.0-0.9) mg/dL Albumin (3.4-5.0) gm/dl 06/08/19 06/08/19 06/08/19 Range/Units 00:20 00:20 06:27 WBC 11.2 H D 10.9 H (4.0-10.5) K/mm3 RBC 4.43 L 4.63 L (4.7-6.0) M/mm3 MCH 32.5 H 32.4 H (27-31) pg RDW 15.1 H 14.7 H (11.5-14.0) % Immature Gran # (Auto) 0.04 H 0.04 H (0.000-0.0310) K/mm3 Neutrophils % 75.8 H (42-75.0) % Lymphocytes % 12.9 L 18.9 L (20-51) % Monocytes % 10.1 H (0.0-9) % Neutrophils # 8.5 H 7.8 H (1.3-6.0) K/mm3 Lymphocytes # 1.45 L (1.5-3.5) k/mm3 Monocytes # 1.1 H (0.0-1.0) k/mm3 ESR (0-10) mm/hr Sodium 131 L (132-142) mmol/L Potassium (3.4-4.6) mmol/L Chloride 96 L (97-106) mmol/L BUN 39 H (6-23) mg/dL Creatinine 1.47 H (0.4-1.4) mg/dL Est GFR (Non-Af Amer) (60-130) mL/min BUN/Creatinine Ratio 26.5 H (9.0-21.6) Random Glucose 113 H (70-110) mg/dL Total Bilirubin 2.6 H (0.0-1.1) mg/dL AST 3155 H (0-48) U/L ALT 2401 H (19-67) U/L C-Reactive Prot, Quant 7.4 H (0.0-0.9) mg/dL Albumin 2.8 L (3.4-5.0) gm/dl 06/08/19 Range/Units 06:27 WBC (4.0-10.5) K/mm3 RBC (4.7-6.0) M/mm3 MCH (27-31) pg RDW (11.5-14.0) % Immature Gran # (Auto) (0.000-0.0310) K/mm3 Neutrophils % (42-75.0) % Lymphocytes % (20-51) % Monocytes % (0.0-9) % Neutrophils # (1.3-6.0) K/mm3 Lymphocytes # (1.5-3.5) k/mm3 Monocytes # (0.0-1.0) k/mm3 ESR (0-10) mm/hr Sodium (132-142) mmol/L Potassium (3.4-4.6) mmol/L Chloride (97-106) mmol/L BUN 38 H (6-23) mg/dL Creatinine (0.4-1.4) mg/dL Est GFR (Non-Af Amer) (60-130) mL/min BUN/Creatinine Ratio 29.5 H (9.0-21.6) Random Glucose (70-110) mg/dL Total Bilirubin 2.6 H (0.0-1.1) mg/dL AST 2643 H (0-48) U/L ALT 2206 H (19-67) U/L C-Reactive Prot, Quant (0.0-0.9) mg/dL Albumin 2.8 L (3.4-5.0) gm/dl - Exam Constitutional: Present: Alert, Oriented x3, Cooperative, Well developed, Well nourished, No distress ENT Exam: Present: normal ENT inspection, hearing grossly normal, pharynx normal, TMs normal Neck: Present: non-tender, full range of motion, supple, normal inspection, trachea midline Respiratory: Present: chest non-tender, lungs clear, normal breath sounds, no respiratory distress, no accessory muscle use Cardiovascular/Chest: Present: normal peripheral pulses, regular rate, rhythm, no chest tenderness, no edema, no gallop, no JVD, no murmur, no rub Abdomen: Present: Normal bowel sounds, soft, nontender, nondistended, no rebound tenderness, no hepatospenomegaly, no masses /Rectal: Present: Exam deferred Extremity: Present: normal range of motion, non-tender, normal inspection, no pedal edema, no calf tenderness Skin Exam: Present: normal color, warm/dry, no cyanosis Lymphatic: Present: no adenopathy Neurologic: Present: 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 We will follow-up with results and treat the patient accordingly. In the meantime we will watch his blood pressure and other vitals and wait for hepatitis panel results to rule out hepatitis. We will keep his Lasix at the current dose since he is doing well on it. - Problems/Diagnosis (1) Heart failure, systolic, with acute decompensation Problem: Acute (2) Non-compliant patient Problem: Acute (3) Acute gastritis Problem: Resolved (4) Transaminitis Problem: Acute (5) Non-compliant patient Problem: Acute (6) Poor social situation Problem: Acute
[2019-06-08] MEDS: METOPROLOL TARTRATE 50 MG TABLET PO SCH (20:59)
[2019-06-08] MEDS ORDERED: CALCIUM CARBONATE 500 MG TAB.CHEW PO PRN (23:40)
[2019-06-09] MEDS: PANTOPRAZOLE SODIUM 40 MG TABLET.EC PO SCH (07:01)
[2019-06-09] MEDS: ROSUVASTATIN CALCIUM 10 MG TABLET PO SCH (09:03)
[2019-06-09] MEDS: ASPIRIN 81 MG TABLET.DR PO SCH (09:03)
[2019-06-09] MEDS: METOPROLOL TARTRATE 50 MG TABLET PO SCH (09:04)
[2019-06-09] MEDS: ENALAPRIL MALEATE 5 MG TABLET PO SCH (09:04)
[2019-06-09] MEDS: FUROSEMIDE 10 MG/ML VIAL IV SCH (09:15)
[2019-06-09 09:23] LABS: Hematocrit 44.8 % (42.0-52.0); Mean Cell Volume 96.8 fl (78-100); Mean Corpuscular Hemoglobin 32.4 pg (27-31); Mean Corpuscular Hgb Conc 33.5 g/dl (32-36); Mean Platelet Volume 9.5 fl (8-11.3); Neutrophil # 6.8 K/mm3 (1.3-6.0); Neutrophil % 73.9 % (42-75.0); Platelet Count 232 K/mm3 (150-450); Red Blood Count 4.63 M/mm3 (4.7-6.0); Red Cell Distribution Width 14.9 % (11.5-14.0); White Blood Count 9.2 K/mm3 (4.0-10.5)
[2019-06-09 09:57] LABS: Albumin * 2.6 gm/dl (3.4-5.0); Anion Gap 13.4 mmol/L (6.8-13.8); BUN/Creatinine Ratio 30.3 (9.0-21.6); Bilirubin, Total 2.2 mg/dL (0.0-1.1); Ca. Corrected For Albumin 9.1 mg/dL (8.4-10.2); Calcium * 8.3 mg/dL (7.9-10.9); Carbon Dioxide 26.2 mmol/L (24-32.6); Potassium 4.6 mmol/L (3.4-4.6); Total Protein 6.5 gm/dL (6.2-8.2)
--- NOTE | 2019-06-09 10:29 | DS ---
(1) Heart failure, systolic, with acute decompensation Problem: Resolved (2) Non-compliant patient Problem: Chronic (3) Acute gastritis Problem: Resolved (4) Transaminitis Problem: Acute (5) Poor social situation Problem: Acute (6) Cardiac cirrhosis Problem: Acute Date of Discharge:: 06/09/19 Description of Stay: 48-year-old male admitted for decompensated CHF and acute gastritis was evaluated bedside while in ICU and was found to be afebrile and in no acute distress. During the hospitalization patient was treated with multiple doses of IV Lasix to promote diuresis and unload his excess fluid patient shortness of breath has completely resolved and crackles are not heard on auscultation, he is also negative for any pedal edema. Transaminitis was a concern during the hospitalization however this morning labs demonstrate a significant improvement in these enzymes, so congestive hepatitis secondary to CHF was likely the etiology. Patient's leukocytosis has also resolved, and there has been no recurrence of fever. He maintains stable vitals throughout the hospitalization. Yesterday evening the authorities were called due to counterfeit money in the patient's possession, when the police were called it was discovered that there was a warrant for the patient's arrest. He was then moved to the [facility] and an officer was placed outside his door to surveilled him. It was explained to patient that clinically he has improved in the decompensation of his CHF has pretty much resolved however it is very important that he is compliant with his medications especially his diuretics to avoid recurrent fluid overload. I will discharge the patient now and he will most likely be taken to [facility], he will be provided with a prescription for all his medications and instructed to follow-up with his PCP or other provider in a week if at all possible. We will also order a CMP on outpatient basis to reevaluate his electrolytes and liver enzymes. Procedures Performed: none Results and Findings: Lab Pending Results 06/05/19 23:45: WBC 9.7, RBC 4.26 L, Hgb 13.8, Hct 40.6 L, MCV 95.3, MCH 32.4 H, MCHC 34.0, RDW 15.1 H, Plt Count 252, MPV 8.9, Immature Gran % (Auto) 0.40, Immature Gran # (Auto) 0.04 H, Neutrophils % 71.7, Lymphocytes % 18.8 L, Monocytes % 7.1, Eosinophils % 1.6, Basophils % 0.4, Nucleated RBC % 0.0, Neutrophils # 6.9 H, Lymphocytes # 1.82, Monocytes # 0.7, Eosinophils # 0.2, Ab solute Basophils 0.0 06/05/19 23:45: Sodium 134, Plasma Sodium 135, Potassium 3.9, Chloride 101, Carbon Dioxide 23.6 L, Anion Gap 13.3, BUN 24 H, Creatinine 1.06, Est GFR (Non- Af Amer) 96, BUN/Creatinine Ratio 22.6 H, Random Glucose 143 H, Calcium 7.9, Calcium Adj for Albumin 8.7, Total Bilirubin 1.8 H, AST 57 H, ALT 115 H, Alkaline Phosphatase 105, Troponin I 0.070, Total Protein 6.1 L, Albumin 2.6 L 06/06/19 00:11: B-Natriuretic Peptide 3733 H 06/06/19 00:20: Urine Color Dark yellow, Urine Appearance Slightly cloudy, Urine pH 6.0, Ur Specific [place] 1.025, Urine Protein 100 H, Urine Glucose (UA) Negative, Urine Ketones Negative, Urine Blood 10 H, Urine Nitrate Negative, Urine Bilirubin 1 H, Urine Ictotest Negative, Prot Sulfosalicylic Acd 2+ H, Urine Urobilinogen Normal, Ur Leukocyte Esterase Negative, Urine RBC 0-5, Urine WBC Trace, Ur Epithelial Cells 0-5, Urine Bacteria 2+ H, Urine Culture Comments Culture to follow 06/06/19 00:55: Urine Opiates Screen Negative, Barbiturate Screen Negative, Ur Phencyclidine Scrn Negative, Urine Amphetamine Negative, U Benzodiazepines Scrn Negative, Urine Cocaine Screen Negative, Urine Marijuana (THC) Positive H 06/06/19 01:45: Troponin I 0.062 06/06/19 04:24: Troponin I 0.050 06/07/19 00:20: WBC Cancelled, Corrected WBC (auto) Cancelled, RBC Cancelled, Hgb Cancelled, Hct Cancelled, MCV Cancelled, MCH Cancelled, MCHC Cancelled, RDW Cancelled, Plt Count Cancelled, MPV Cancelled, Immature Gran % (Auto) Cancelled, Immature Gran # (Auto) Cancelled, Neutrophils % Cancelled, Lymphocytes % Cancelled, Monocytes % Cancelled, Eosinophils % Cancelled, Basophils % Cancell ed, Nucleated RBC % Cancelled, Neutrophils # Cancelled, Lymphocytes # Cancelled, Monocytes # Cancelled, Eosinophils # Cancelled, Absolute Basophils Cancelled 06/07/19 00:20: Sodium Cancelled, Plasma Sodium Cancelled, Potassium Cancelled, Chloride Cancelled, Carbon Dioxide Cancelled, Anion Gap Cancelled, BUN Cancelled, Creatinine Cancelled, Est GFR (Non-Af Amer) Cancelled, BUN/Creatinine Ratio Cancelled, Random Glucose Cancelled, Calcium Cancelled, Calcium Adj for Albumin Cancelled, Total Bilirubin Cancelled, AST Cancelled, ALT Cancelled, Alkaline Phosphatase Cancelled, C-Reactive Prot, Quant Cancelled, Total Protein Cancelled, Albumin Cancelled 06/07/19 00:20: ESR Cancelled 06/07/19 06:17: Sodium 130 L, Plasma Sodium 130, Potassium 5.8 H D, Chloride 97, Carbon Dioxide 25.0, Anion Gap 13.8, BUN 38 H D, Creatinine 1.64 H D, Est GFR (Non-Af Amer) 58 L D, BUN/Creatinine Ratio 23.2 H, Random Glucose 89 D, Calcium 8.6, Calcium Adj for Albumin 9.0, Total Bilirubin 4.2 H, AST 2919 H, ALT 1745 H, Alkaline Phosphatase 147, Total Protein 7.4, Albumin 3.1 L 06/07/19 06:17: WBC 16.2 H D, RBC 5.19, Hgb 17.0, Hct 52.4 H, MCV 101.0 H, MCH 32.8 H, MCHC 32.4, RDW 15.3 H, Plt Count 209, MPV 9.8, Neutrophils % (Manual) 79 H, Lymphocytes % (Manual) 19 L, Monocytes % (Manual) 2, Neutrophils # (Manual) 12.8 H, Lymphocytes # (Manual) 3.1, Monocytes # (Manual) 0.3, Platelet Estimate Normal, RBC Morphology Normal 06/08/19 00:20: ESR 15 H 06/08/19 00:20: WBC 11.2 H D, RBC 4.43 L, Hgb 14.4, Hct 42.4, MCV 95.7, MCH 32.5 H, MCHC 34.0, RDW 15.1 H, Plt Count 244, MPV 9.4, Immature Gran % (Auto) 0.40, Immature Gran # (Auto) 0.04 H, Neutrophils % 75.8 H, Lymphocytes % 12.9 L, Monocytes % 10.1 H, Eosinophils % 0.4, Basophils % 0.4, Nucleated RBC % 0.0, Neutrophils # 8.5 H, Lymphocytes # 1.45 L, Monocytes # 1.1 H, Eosinophils # 0.0, Absolute Basophils 0.0 06/08/19 00:20: Sodium 131 L, Plasma Sodium 131, Potassium 4.3 D, Chloride 96 L, Carbon Dioxide 27.7, Anion Gap 11.6, BUN 39 H, Creatinine 1.47 H, Est GFR (Non-Af Amer) 66, BUN/Creatinine Ratio 26.5 H, Random Glucose 113 H, Calcium 8.2, Calcium Adj for Albumin 8.8, Total Bilirubin 2.6 H, AST 3155 H, ALT 2401 H, Alkaline Phosphatase 156, C-Reactive Prot, Quant 7.4 H, Total Protein 6.5, Albumin 2.8 L 06/08/19 06:27: WBC 10.9 H, RBC 4.63 L, Hgb 15.0, Hct 44.5, MCV 96.1, MCH 32.4 H, MCHC 33.7, RDW 14.7 H, Plt Count 228, MPV 9.6, Immature Gran % (Auto) 0.40, Immature Gran # (Auto) 0.04 H, Neutrophils % 71.2, Lymphocytes % 18.9 L, Monocytes % 8.2, Eosinophils % 0.8, Basophils % 0.5, Nucleated RBC % 0.0, Neutrophils # 7.8 H, Lymphocytes # 2.06, Monocytes # 0.9, Eosinophils # 0.1, Absolute Basophils 0.1 06/08/19 06:27: Sodium 132, Plasma Sodium 132, Potassium 4.1, Chloride 98, Carbon Dioxide 28.1, Anion Gap 10.0, BUN 38 H, Creatinine 1.29, Est GFR (Non-Af Amer) 77, BUN/Creatinine Ratio 29.5 H, Random Glucose 84, Calcium 8.3, Calcium Adj for Albumin 8.9, Total Bilirubin 2.6 H, AST 2643 H, ALT 2206 H, Alkaline Emily sphatase 165, Total Protein 6.7, Albumin 2.8 L 06/09/19 09:17: WBC 9.2, RBC 4.63 L, Hgb 15.0, Hct 44.8, MCV 96.8, MCH 32.4 H, MCHC 33.5, RDW 14.9 H, Plt Count 232, MPV 9.5, Immature Gran % (Auto) 0.40, Immature Gran # (Auto) 0.04 H, Neutrophils % 73.9, Lymphocytes % 16.1 L, Monocytes % 7.7, Eosinophils % 1.5, Basophils % 0.4, Nucleated RBC % 0.0, Neutrophils # 6.8 H, Lymphocytes # 1.48 L, Monocytes # 0.7, Eosinophils # 0.1, Absolute Basophils 0.0 06/09/19 09:17: Sodium 131 L, Plasma Sodium 132, Potassium 4.6, Chloride 96 L, Carbon Dioxide 26.2, Anion Gap 13.4, BUN 36 H, Creatinine 1.19, Est GFR (Non-Af Amer) 84, BUN/Creatinine Ratio 30.3 H, Random Glucose 140 H D, Calcium 8.3, Calcium Adj for Albumin 9.1, Total Bilirubin 2.2 H, AST 1179 H, ALT 1571 H, Alkaline Phosphatase 179 H, B-Natriuretic Peptide 1715 H, Total Protein 6.5, Albumin 2.6 L Discharge Location: Group Home Disposition: Home self-care Condition: Fair Face to Face Encounter completed per CMS Guidelines: No Discharge Activity: Activity as tolerated Discharge Diet: Low salt Additional Patient Instructions (free text): Follow up with [facility] clinic in [place] with Taylor Fregoso on FridayJune 16 at 7:20am. Please fax discharge information to [phone]. Complete Home Medications List: Complete Home Medication List: Aspirin [Aspir-Low] 81 mg PO DAILY 01/12/19 Atorvastatin Calcium [Lipitor] 20 mg PO DAILY 01/12/19 Enalapril Maleate [Vasotec] 10 mg PO BID 01/12/19 Furosemide 20 mg PO BID #60 tab 06/06/19 Metoprolol Succinate 50 mg PO DAILY 30 Days #30 tab.er.24h 06/06/19
[2019-06-09 10:37] VITALS: BP 107/73
[2019-06-30 16:26] LABS: Hepatitis B Surface Antigen NON-REACTIVE; Hepatitis C Antibody NON-REACTIVE
== END 2019-06-09 11:45 | disposition home or self-care (01) | DRG 291 ==
LOC: MS 23:22 → ER 23:22 → MS 06-06 07:10 → SCU 06-08 17:05
PROVIDERS: ADMIT Family Medicine; ATTEND Family Medicine
DX: K76.1 Chronic passive congestion of liver; I11.0 Hypertensive heart disease with heart failure; I50.23 Acute on chronic systolic (congestive) heart failure; Z91.19 Patient's noncompliance with other medical treatment and regimen; K72.00 Acute and subacute hepatic failure without coma; K29.00 Acute gastritis without bleeding; R74.0 Nonspecific elevation of levels of transaminase and lactic acid dehydrogenase [LDH]
CPT/HCPCS: 36415; 71020; 71046; 71275; 74175; 80053; 80074; 80307; 81001; 83519; 83880; 84484; 85025; 85652; 86140; 87086; 93005; 96365; 96375; 96376; 99285; G0378; J0131; J2405; Q9967